=== PATIENT | female | born 1995 | race Caucasian/White ===

== ENCOUNTER 2018-10-24 21:25 | Emergency (ER) | payer OTHER ==
[2018-10-24 21:48] LABS: PLATELET COUNT 260 10^3/uL (150-400)
[2018-10-24] MEDS ORDERED: fentaNYL 100 MCG/2 ML INJ IVP ONE (22:13)
[2018-10-24] MEDS ORDERED: NS 1,000 ML IV ONE (22:18)
--- NOTE | 2018-10-24 22:21 | EDPHY ---
General Time Seen by Provider: 10/24/18 21:34 Narrative: CLINICAL IMPRESSION: Lower abdominal pain, nausea ASSESSMENT/PLAN: 22-year-old otherwise healthy female presents to the emergency department with complaints of lower abdominal pain and nausea beginning at 2:00 p.m. Today. Patient had a normal appetite today, did eat prior to arrival, has not had any emesis or diarrhea. She arrives with stable vital signs, afebrile, no tachycardia, nontoxic and nonseptic appearing. She has generalized lower abdominal discomfort with no focal peritoneal findings. Urine not suggestive of UTI or pyelonephritis, not . Mild leukocytosis of 10, otherwise unremarkable metabolic panel and electrolytes. Pelvic ultrasound reassuring with normal appearing ovaries, IUD in place, normal uterus. Nonvisualized appendix. Patient received fentanyl and Toradol for pain. She did report some improvement. On reassessment she remains without focal peritoneal findings, guarding, rigidity or distention. I did offer a CT scan to rule out appendicitis and diverticulitis but patient has refused at this time. She prefers to go home, take pain medications and monitor symptoms. PCP referrals given. Low threshold for return to ED sooner as outlined in person and discharge papers. DIFFERENTIAL DX: Abdominal pain includes but not limited to urinary tract infection, pyelonephritis, infection, ectopic , salpingitis, TOA, ovarian torsion, ovarian cyst, endometriosis, uterine fibroids, acute appendicitis, acute diverticulitis, small-bowel obstruction, constipation ED PROCEDURES: See lab and/or imaging results below ED COURSE: 11:15 p.m.. Radiologist called with ultrasound results, nonvisualized appendix , otherwise normal pelvic ultrasound, IUD in place, no ovarian cyst. Labs show mild leukocytosis, otherwise normal, urine still pending. 12:20 a.m.: Patient reassessed, all lab results and ultrasound results reviewed again. She continues to have mild pain but reports Toradol did improve the pain slightly. Pain is bilateral lower quadrants, slightly worse to the right with no associated guarding, rigidity or rebound. No focal peritoneal findings. Vitals remained stable, afebrile. I did discuss an offer CT scan which patient had climbed at this time. She prefers to go home and monitor symptoms. She would like pain medications. We discussed low threshold for return to ED sooner for worsening symptoms as outlined in person and discharge papers. CHIEF COMPLAINT: Abdominal pain, nausea, subjective fever HPI: 22-year-old female with no reported significant past medical history presents to the emergency department with generalized lower abdominal pain associated with nausea and a subjective fever that began at 2:00 p.m. Today. Patient had a normal appetite today, ate dinner including macaroni and cheese. She denies diarrhea, bloody stools or black stools. No UTI symptoms. She does note some radiating pain into bilateral flanks since 6:00 p.m.. She took ibuprofen for subjective fever like symptoms which improved those symptoms but did not help with the belly pain. Pain is worse when she is lying flat. She has an IUD in place and tried to check her strings but was unable to feel them. She is sexually active but denies and does not believe she has STDs. No abnormal vaginal discharge or bleeding. She does not get menstrual cycles due to IUD. No prior gynecologic history and no intra-abdominal surgery. She reports she is otherwise healthy. 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 ENT: No sore throat, congestion, ear pain. Cardiovascular: No chest pain, no palpitations. Respiratory: No cough, no shortness of breath. Gastrointestinal: Positive for abdominal pain, no vomiting, diarrhea. Genitourinary: No hematuria, dysuria, positive for flank pain, pelvic pain Musculoskeletal: No back pain, joint swelling, joint pain, myalgias. Skin: No rashes, color change. PHYSICAL EXAM: General Appearance: Alert, oriented, appropriate, cooperative, NAD, well hydrated, non-toxic appearing, VSS, no hypoxia. HEENT: Oropharynx clear is no erythema or exudates, no tonsillar hypertrophy or asymmetry. Dentition without abnormality. Respiratory: There are no retractions, lungs are clear to auscultation. Cardiac: Regular rate and rhythm, no murmurs or gallops. Gastrointestinal: Abdomen is soft, generalized lower abdominal tenderness, slightly worse on the right, bowel sounds normal, no masses/hernia, no rigidity , guarding or focal peritoneal findings. Neurological: [ Alert and oriented x 3, CN 2-12 grossly intact Skin: Warm, dry, no rashes, no nodules on palpation. MEDICAL DECISION MAKING: Patient was seen independently. Secondary supervising physician at time of evaluation was Dr. Suero . Diagnosis: Lower abdominal pain and nausea. New, requires workup Summary: See Assessment and Plan for summary of ED visit Clinical lab tests: ordered / reviewed. Independent visualization of images, tracing, or specimens: Yes. Decision to obtain medical records or history from someone other than the patient: No Review / Summarize previous medical records: None available Discussed patient with another provider: Dr. Suero, Dr. Bell Patient Progress: Improved. - Diagnostics Imaging Results: Imaging Impressions Abdomen Ultrasound 10/24/18 22:13 Impression: Indeterminate study for appendicitis as a normal nor an abnormal appendix is visualized. Results called and discussed with Yannick Gary at 10/24/2018 23:15. Pelvic/Renal Ultrasound 10/24/18 22:13 Impression: Normal ultrasound pelvis. Results called and discussed with Yannick Gary at 10/24/2018 23:13. - History Smoking Status: Never smoked - Objective Vital Signs: Initial Vital Signs Temperature (C) 36.5 C 10/24/18 21:30 Heart Rate 73 10/24/18 21:30 Respiratory Rate 16 10/24/18 21:30 Blood Pressure 134/92 H 10/24/18 21:30 O2 Sat (%) 98 10/24/18 21:30 O2 Delivery Mode Room Air Allergies/Adverse Reactions: No Known Allergies Allergy (Verified 10/24/18 21:31) Home Medications: Medication Instructions Recorded Prozac 10 MG (*) 06/03/18 oxyCODONE/APAP 325 [Percocet 1 - 2 tab PO Q4-6PRN PRN #10 tab 10/25/18325] Laboratory Results: Laboratory Results 10/24/18 21:37 10/24/18 21:37 10/24/18 10/24/18 10/24/18 23:10 21:37 21:37 WBC RBC Hgb Hct MCV MCH MCHC RDW Plt Count MPV Neut % (Auto) Lymph % (Auto) Cass % (Auto) Eos % (Auto) Baso % (Auto) Nucleat RBC Rel Count Absolute Neuts (auto) Absolute Lymphs (auto) Absolute Monos (auto) Absolute Eos (auto) Absolute Basos (auto) Absolute Nucleated RBC Immature Gran % Immature Gran # Sodium 136 mEq/L mEq/L (135-145) Potassium 4.1 mEq/L mEq/L (3.5-5.2) Chloride 104 mEq/L mEq/L (97-110) Carbon Dioxide 22 mEq/l mEq/l (22-31) Anion Gap 10 mEq/L mEq/L (6-14) BUN 12 mg/dL mg/dL (7-23) Creatinine 0.9 mg/dL mg/dL (0.6-1.0) Estimated GFR > 60 Glucose 86 mg/dL mg/dL (70-100) Calcium 9.7 mg/dL mg/dL (8.5-10.4) Beta HCG, Qual NEGATIVE Urine Color YELLOW Urine Appearance HAZY Urine pH 5.0 (5.0-7.5) Ur Specific [place] 1.023 (1.002-1.030) Urine Protein NEGATIVE (NEGATIVE) Urine Ketones 1+ H (NEGATIVE) Urine Blood NEGATIVE (NEGATIVE) Urine Nitrate NEGATIVE (NEGATIVE) Urine Bilirubin NEGATIVE (NEGATIVE) Urine Urobilinogen NEGATIVE EU EU (0.2-1.0) Ur Leukocyte Esterase NEGATIVE (NEGATIVE) Urine RBC 1-3 /hpf /hpf (0-3) Urine WBC 1-3 /hpf /hpf (0-3) Ur Epithelial Cells TRACE /lpf /lpf (NONE-1+) Urine Mucus 3+ /lpf H /lpf (NONE-1+) Urine Glucose NEGATIVE (NEGATIVE) 10/24/18 21:37 WBC 10.36 10^3/uL H 10^3/uL (3.80-9.50) RBC 4.35 10^6/uL 10^6/uL (4.18-5.33) Hgb 13.9 g/dL g/dL (12.6-16.3) Hct 40.8 % % (38.0-47.0) MCV 93.8 fL fL (81.5-99.8) MCH 32.0 pg pg (27.9-34.1) MCHC 34.1 g/dL g/dL (32.4-36.7) RDW 11.4 % L % (11.5-15.2) Plt Count 260 10^3/uL 10^3/uL (150-400) MPV 10.6 fL fL (8.7-11.7) Neut % (Auto) 60.5 % % (39.3-74.2) Lymph % (Auto) 31.7 % % (15.0-45.0) Cass % (Auto) 6.9 % % (4.5-13.0) Eos % (Auto) 0.2 % L % (0.6-7.6) Baso % (Auto) 0.5 % % (0.3-1.7) Nucleat RBC Rel Count 0.0 % % (0.0-0.2) Absolute Neuts (auto) 6.27 10^3/uL 10^3/uL (1.70-6.50) Absolute Lymphs (auto) 3.28 10^3/uL H 10^3/uL (1.00-3.00) Absolute Monos (auto) 0.72 10^3/uL 10^3/uL (0.30-0.80) Absolute Eos (auto) 0.02 10^3/uL L 10^3/uL (0.03-0.40) Absolute Basos (auto) 0.05 10^3/uL 10^3/uL (0.02-0.10) Absolute Nucleated RBC 0.00 10^3/uL 10^3/uL (0-0.01) Immature Gran % 0.2 % % (0.0-1.1) Immature Gran # 0.02 10^3/uL 10^3/uL (0.00-0.10) Sodium Potassium Chloride Carbon Dioxide Anion Gap BUN Creatinine Estimated GFR Glucose Calcium Beta HCG, Qual Urine Color Urine Appearance Urine pH Ur Specific [place] Urine Protein Urine Ketones Urine Blood Urine Nitrate Urine Bilirubin Urine Urobilinogen Ur Leukocyte Esterase Urine RBC Urine WBC Ur Epithelial Cells Urine Mucus Urine Glucose Medications Given: Discontinued Medications Fentanyl (Sublimaze) 50 mcg IVP EDNOW ONE Stop: 10/24/18 22:14 Last Admin: 10/24/18 22:24 Dose: 50 mcg Hydromorphone HCl (Dilaudid) 0.5 mg IVP EDNOW ONE Stop: 10/25/18 00:24 Last Admin: 10/25/18 00:30 Dose: 0.5 mg Sodium Chloride (Ns) 1,000 mls @ 0 mls/hr IV ONCE ONE; Wide Open PRN Reason: Protocol Stop: 10/24/18 22:19 Last Admin: 10/24/18 22:24 Dose: 1,000 mls Ketorolac Tromethamine (Toradol) 15 mg IVP EDNOW ONE Stop: 10/24/18 23:29 Last Admin: 10/24/18 23:35 Dose: 15 mg Oxycodone/Acetaminophen (Percocet 5/325mg Prepack#4) 1 btl TAKEHOME EDNOW ONE Stop: 10/25/18 00:24 Last Admin: 10/25/18 00:31 Dose: 1 btl Departure - Departure Disposition: Home, Routine, Self-Care Clinical Impression: Abdominal pain Qualifiers: Abdominal location: lower abdomen, unspecified Qualified Code(s): R10.30 - Lower abdominal pain, unspecified Condition: Fair Instructions: Oxycodone/Acetaminophen (By mouth), Acute Abdominal Pain (ED) Additional Instructions: DISCHARGE INSTRUCTIONS FROM YOUR DOCTOR Thank you for visiting our emergency department today. Please keep in mind that discharge from the emergency department does not mean that there is nothing wrong - it simply means that we have not identified an emergency condition that requires further evaluation or treatment in the hospital. You should always plan to follow up with primary care for re-evaluation of your condition in the next 2-3 days. If you have been referred to a specialist, please call as soon as possible (today or tomorrow) to schedule your follow up appointment at the appropriate time. [ DIAGNOSTIC WORKUP IN THE EMERGENCY DEPARTMENT INCLUDED LABS, URINE STUDY AND ULTRASOUND. WE DID NOT IDENTIFY A DANGEROUS CAUSE FOR YOUR ABDOMINAL PAIN TONIGHT. WE DID DISCUSS AN OFFER A CT SCAN TO RULE OUT APPENDICITIS HOWEVER YOU HAVE DECLINED AT THIS TIME. PAIN MEDICATION WAS PRESCRIBED. WE STRONGLY RECOMMEND CLOSE OBSERVATION AND LOW THRESHOLD FOR RETURN TO ED FOR WORSENING ABDOMINAL PAIN, DEVELOPMENT OF FEVERS GREATER THAN 100.4, VOMITING, DECREASED APPETITE, BLOODY STOOLS, ABDOMINAL DISTENTION OR ANY OTHER CONCERNS. A PRIMARY CARE REFERRALS ALSO PROVIDED.] People present with illnesses and injuries in different ways, and it is always possible that we have missed something. You may always return for re-evaluation if symptoms worsen or if they are not improving or if you develop new/different symptoms. Again, thank you for choosing our emergency department. We hope that you feel better. Referrals: NONE *PRIMARY CARE P,. [Primary Care Provider] - As per Instructions David Sanchez MD [Medical Doctor] - 2-3 days, if not improved Prescriptions: oxyCODONE/APAP 5/325 [Percocet 5/325] 1 - 2 tab PO Q4-6PRN PRN #10 tab PRN Reason: Pain, Breakthrough
[2018-10-24] MEDS ORDERED: KETOROLAC 15 MG/1 ML SDV IVP ONE (23:28)
[2018-10-24] MEDS ORDERED: KETOROLAC 15 MG/1 ML SDV ONE (23:29)
[2018-10-25] MEDS ORDERED: OXYCODONE/APAP 5/325MG PREPACK#4 BTL TAKEHOME ONE (00:23)
[2018-10-25] MEDS ORDERED: HYDROmorphONE/DILAUDID 2 MG/ML INJ IVP ONE (00:23)
[2018-10-25 00:31] VITALS: BP 135/82
== END 2018-10-25 00:40 | disposition home or self-care (01) ==
DX: R10.30 Lower abdominal pain, unspecified (principal); R11.0 Nausea; E86.9 Volume depletion, unspecified
CPT/HCPCS: 96374; J1170; J1885; J3010